=== PATIENT | male | born 1930 | race Hispanic/Latino ===

== ENCOUNTER 2020-06-25 10:07 | Observation (INO) | payer MEDICARE, OTHER ==
[~2020-06-25] VITALS: Ht 165.1 cm; Wt 72.6 kg
[~2020-06-25 10:07] MED LIST: LEVOTHYROXINE50 MCG PO; PRAVASTATIN SOD20 MG PO; TAMSULOSIN HCL0.4 MG PO
[2020-06-25] MEDS ORDERED: SODIUM CHLORIDE 0.9% 1000ML 1,000 ML IV STA (10:30)
[2020-06-25 10:45] LABS: BASOPHILS # (AUTO) 0.1 (0.0-0.1); BASOPHILS % 0.4 % (0.0-1.0); EOSINOPHILS # (AUTO) 0.1 (0.0-0.4); EOSINOPHILS % 0.5 % (0.0-6.0); HEMATOCRIT 42.7 % (38.2-49.6); HEMOGLOBIN 13.8 g/dL (14.0-18.0); LYMPHOCYTES # (AUTO) 2.6 (1.0-3.2); LYMPHOCYTES % 16.3 % (18.0-39.1); MEAN CORPUSCULAR HEMOGLOBIN 28.8 pg (28-32); MEAN CORPUSCULAR HGB CONC 32.3 g/dL (31-35); MONOCYTES # (AUTO) 1.1 (0.2-0.8); MONOCYTES % 7.1 % (4.4-11.3); NEUTROPHILS # (AUTO) 11.8 (2.1-6.9); PLATELET COUNT 358 x10e3/uL (140-360); RED CELL DISTRIBUTION WIDTH 14.3 % (11.7-14.4)
[2020-06-25 10:56] LABS: INR 0.99; PARTIAL THROMBOPLASTIN TIME 25.5 seconds (23.8-35.5); PROTHROMBIN TIME 13.6 seconds (11.9-14.5)
[2020-06-25 11:03] LABS: ALANINE AMINOTRANSFERASE 13 IU/L (0-55); ALBUMIN 3.5 g/dL (3.5-5.0); ALBUMIN/GLOBULIN RATIO 0.8 (0.8-2.0); ALKALINE PHOSPHATASE 53 IU/L (40-150); ANION GAP 14.4 mmol/L (8-16); BLOOD UREA NITROGEN 21 mg/dL (7-26); BUN/CREATININE RATIO 17 (6-25); CARBON DIOXIDE 25 mmol/L (22-29); CHLORIDE 107 mmol/L (98-107); CREATINE KINASE 48 IU/L (30-200); CREATININE, SERUM 1.27 mg/dL (0.72-1.25); EST GLOMERULAR FILTRATION RATE 54 ML/MIN (60-); GLUCOSE 114 mg/dL (74-118); MAGNESIUM 1.9 MG/DL (1.3-2.1); POTASSIUM 4.4 mmol/L (3.5-5.1); SODIUM 142 mmol/L (136-145)
[2020-06-25 11:12] LABS: CREATINE KINASE MB < 1.00 ng/mL (0-5.0)
--- NOTE | 2020-06-25 11:41 | Diagnostic Imaging Report ---
EXAMINATION: CHEST SINGLE (PORTABLE) INDICATION: Syncope COMPARISON: None FINDINGS: LINES/TUBES:EKG leads overlie the chest. LUNGS:The lungs are moderately inflated. No focal consolidation or pulmonary edema. PLEURA:No pleural effusion or pneumothorax. MEDIASTINUM:The cardiomediastinal silhouette appears normal in size and shape. Atherosclerotic calcifications of the thoracic aorta. BONES/SOFT TISSUES:No acute osseous injury. ABDOMEN:No free air under the diaphragm. IMPRESSION: No focal pneumonia or pulmonary edema. Signed by: John Serrano MD on 06/25/2020 11:38 AM
[2020-06-25] MEDS ORDERED: ONDANSETRON HCL INJ 2MG/ML 2ML 2 MG/ML VIAL IV PRN (12:00)
[2020-06-25] MEDS ORDERED: ACETAMINOPHEN 325 MG TAB PO PRN (12:00)
--- NOTE | 2020-06-25 12:03 | Emergency Department Note ---
History of Present Illnes History of Present Illness Chief Complaint: General Medicine Complaints History of Present Illness This is a 89 year old male pt came in via POV for evaluation of syncope (pt denies LOC but family says he was unresponsive/+LOC for ~1 minute), pt states that he was sitting at table drinking coffee when he fainted, denies actually falling to the floor but states that he experienced blurred vision prior to the fainting episode, denies any chest pain,dizziness or lightheadedness, pt has no complaints at this time. Historian: Patient, Family Member Arrival Mode: Car Forestry Aid Technician Required: No Onset (how long ago): minute(s) Radiation: Reports non-radiation Severity: severe Onset quality: sudden Timing of current episode: sporadic Progression: resolved Chronicity: new Context: Denies recent illness Relieving factors: none Exacerbating factors: none Associated symptoms: Reports denies other symptoms Past Medical/Family History Physician Review I have reviewed the patient's past medical and family history. Any updates have been documented here. Past Medical History Recent Fever: No Clinical Suspicion of Infectio: No New/Unexplained Change in Ment: No Past Medical History: Hypertension, Hypothyroidism Other Medical History: HIGH CHOLESTEROL PROSTATE CA Other Surgery: TURP EXPLORATORY LAP Social History Smoking Cessation: Never Smoker Counseling Performed: No Alcohol Use: None Any Illegal Drug Use: No TB Exposure/Symptoms: No Physically hurt or threatened: No Family History Family history of heart diseas: No Other Last Tetanus: Y Any Pre-Existing Lines (PICC,: No Review of Systems Review of Systems Constitutional: Reports no symptoms EENTM: Reports no symptoms Cardiovascular: Reports syncope Respiratory: Reports no symptoms Gastrointestinal: Reports no symptoms Genitourinary: Reports no symptoms Musculoskeletal: Reports no symptoms Integumentary: Reports no symptoms Neurological: Reports no symptoms Psychological: Reports no symptoms Endocrine: Reports no symptoms Hematological/Lymphatic: Reports no symptoms Physical Exam Related Data Allergies: Coded Allergies: No Known Allergies (Unverified , 11/03/15) Triage Vital Signs Vital Signs Date Time Temp Pulse Resp B/P (MAP) Pulse Ox O2 Delivery O2 Flow Rate FiO2 06/25/20 10:15 97.9 92 20 140/103 99 Room Air Vital signs reviewed: Yes Physical Exam CONSTITUTIONAL Constitutional: Present well-developed, Present well-nourished HENT HENT: Present normocephalic, Present atraumatic, Present oropharynx clear/moist, Present nose normal HENT L/R: Present left ext ear normal, Present right ext ear normal EYES Eyes: Reports PERRL, Reports conjunctivae normal NECK Neck: Present ROM normal PULMONARY Pulmonary: Present effort normal, Present breath sounds normal CARDIOVASCULAR Cardiovascular: Present regular rhythm, Present heart sounds normal, Present capillary refill normal, Present normal rate GASTROINTESTINAL Abdominal: Present soft, Present nontender, Present bowel sounds normal GENITOURINARY Genitourinary: Present exam deferred SKIN Skin: Present warm, Present dry MUSCULOSKELETAL Musculoskeletal: Present ROM normal NEUROLOGICAL Neurological: Present alert, Present oriented x 3, Present no gross motor or sensory deficits PSYCHOLOGICAL Psychological: Present mood/affect normal, Present judgement normal Results Laboratory Result Diagram: 06/25/20 1016 06/25/20 1016 Laboratory Laboratory Tests Test 06/25/20 11:47 06/25/20 10:16 White Blood Count 15.74 x10e3/uL (4.8-10.8) Red Blood Count 4.80 x10e6/uL (4.3-5.7) Hemoglobin 13.8 g/dL (14.0-18.0) Hematocrit 42.7 % (38.2-49.6) Mean Corpuscular Volume 89.0 fL (81-99) Mean Corpuscular Hemoglobin 28.8 pg (28-32) Mean Corpuscular Hemoglobin Concent 32.3 g/dL (31-35) Red Cell Distribution Width 14.3 % (11.7-14.4) Platelet Count 358 x10e3/uL (140-360) Neutrophils (%) (Auto) 75.0 % (38.7-80.0) Lymphocytes (%) (Auto) 16.3 % (18.0-39.1) Monocytes (%) (Auto) 7.1 % (4.4-11.3) Eosinophils (%) (Auto) 0.5 % (0.0-6.0) Basophils (%) (Auto) 0.4 % (0.0-1.0) Neutrophils # (Auto) 11.8 (2.1-6.9) Lymphocytes # (Auto) 2.6 (1.0-3.2) Monocytes # (Auto) 1.1 (0.2-0.8) Eosinophils # (Auto) 0.1 (0.0-0.4) Basophils # (Auto) 0.1 (0.0-0.1) Absolute Immature Granulocyte (auto 0.11 x10e3/uL (0-0.1) Prothrombin Time 13.6 seconds (11.9-14.5) Prothromb Time International Ratio 0.99 Activated Partial Thromboplast Time 25.5 seconds (23.8-35.5) Sodium Level 142 mmol/L (136-145) Potassium Level 4.4 mmol/L (3.5-5.1) Chloride Level 107 mmol/L (98-107) Carbon Dioxide Level 25 mmol/L (22-29) Anion Gap 14.4 mmol/L (8-16) Blood Urea Nitrogen 21 mg/dL (7-26) Creatinine 1.27 mg/dL (0.72-1.25) Estimat Glomerular Filtration Rate 54 ML/MIN (60-) BUN/Creatinine Ratio 17 (6-25) Glucose Level 114 mg/dL (74-118) Calcium Level 9.0 mg/dL (8.4-10.2) Magnesium Level 1.9 MG/DL (1.3-2.1) Total Bilirubin 0.4 mg/dL (0.2-1.2) Aspartate Amino Transf (AST/SGOT) 21 IU/L (5-34) Alanine Aminotransferase (ALT/SGPT) 13 IU/L (0-55) Alkaline Phosphatase 53 IU/L (40-150) Creatine Kinase 48 IU/L (30-200) Creatine Kinase MB < 1.00 ng/mL (0-5.0) Troponin I 0.001 ng/mL (0-0.300) B-Type Natriuretic Peptide 32.2 pg/mL (0-100) Total Protein 7.7 g/dL (6.5-8.1) Albumin 3.5 g/dL (3.5-5.0) Globulin 4.2 g/dL (2.3-3.5) Albumin/Globulin Ratio 0.8 (0.8-2.0) Lab results reviewed: Yes Imaging Imaging results reviewed: Yes Impressions EXAMINATION: CHEST SINGLE (PORTABLE) INDICATION: Syncope COMPARISON: None FINDINGS: LINES/TUBES:EKG leads overlie the chest. LUNGS:The lungs are moderately inflated. No focal consolidation or pulmonary edema. PLEURA:No pleural effusion or pneumothorax. MEDIASTINUM:The cardiomediastinal silhouette appears normal in size and shape. Atherosclerotic calcifications of the thoracic aorta. BONES/SOFT TISSUES:No acute osseous injury. ABDOMEN:No free air under the diaphragm. IMPRESSION: No focal pneumonia or pulmonary edema. Signed by: John Serrano MD on 06/25/2020 11:38 AM Procedures 12 Lead ECG Interpretation ECG Interpretation : ECG: ECG 1 Forestry Aid Technician: Interpreted by ED physician Date: Jun 25, 2020 Time: 10:19 Rhythm: sinus rhythm Rate: normal BPM: 97 QRS axis: normal ST segments normal: Yes T waves normal: Yes Clinical Impression: normal ECG Assessment & Plan Medical Decision Making MDM syncope - check CBC, CHEM, ECG, CARDIACS, CT BRAIN, UA - EVAL FOR DYSRHYTHMIA, STEMI/NSTEMI, DEHYDRATION, RENAL INSUFF, ELECTROLYTE ABNL. ADMIT TELE, R/O DYSRHYTHMIA/NSTEMI Reassessment Reassessment ADMIT TO DR Minda BARRAGAN Assessment & Plan Final Impression: (1) Syncope Depart Disposition: ADMITTED Last Vital Signs Date Time Temp Pulse Resp B/P (MAP) Pulse Ox O2 Delivery O2 Flow Rate FiO2 06/25/20 10:15 97.9 92 20 140/103 99 Room Air Home Meds Reported Medications Pravastatin Sodium (PRAVASTATIN SODIUM) 20 Mg Tablet, 20 MG PO DAILY 11/03/15 Levothyroxine Sodium (LEVOTHYROXINE SODIUM) 50 Mcg Tablet, 50 MCG PO DAILY, #30 TAB 11/03/15 Tamsulosin Hcl (TAMSULOSIN HCL) 0.4 Mg Cap.er.24h, 0.4 MG PO DAILY 11/03/15 Medications in the ED Sodium Chloride 1,000 ml @ 0 mls/hr Q0M STAT IV ; Start 06/25/20 at 10:30; Stop 06/25/20 at 10:34; Status DC Ondansetron HCl 4 mg Q4H PRN IV NAUSEA AND VOMITING; Start 06/25/20 at 12:00; Stop 07/25/20 at 11:59; Status UNV Acetaminophen 650 mg Q6H PRN PO Mild Pain (1-3) or Fever>100.8; Start 06/25/20 at 12:00; Stop 07/25/20 at 11:59; Status UNV MISA WADE MD Jun 25, 2020 12:03
--- NOTE | 2020-06-25 12:24 | Diagnostic Imaging Report ---
Examination: CT head without contrast Clinical Indication: ^N ^SYNCOPE ^[id number] ^1110. Technique: Transaxial noncontrast images from the skull base through the vertex were obtained. Sagittal and coronal reformatted images were done. Dose modulation, iterative reconstruction, and/or weight based adjustment of the mA/kV was utilized to reduce the radiation dose to as low as reasonably achievable. Comparison: None. Findings: Scalp: No abnormalities. Bones: Intact. No fractures. No blastic or lytic lesions. Brain sulci: Appropriate for patient's age. Ventricles: Normal in size and configuration. No hydrocephalus. . Extra-axial space: No abnormalities. Parenchyma: There are patchy areas of low-attenuation within subcortical and periventricular white matter, nonspecific, but could represent microvascular ischemic disease. 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 No masses, hemorrhage, or acute or chronic cortical based vascular insults. Suprasellar region: No abnormalities. Craniocervical junction: The foramen magnum is patent. No Chiari one malformation. Impression: 1. No acute intracranial finding. 2. 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 Signed by: Dr. Ada León M.D. on 06/25/2020 12:21 PM
[2020-06-25 12:42] LABS: CLARITY,URINE CLEAR (CLEAR); COLOR,URINE YELLOW (YELLOW)
[2020-06-25 12:43] LABS: BILIRUBIN,URINE NEGATIVE (NEGATIVE); KETONES,URINE NEGATIVE (NEGATIVE); LEUKOCYTE ESTERASE ,URINE NEGATIVE (NEGATIVE); NITRITE,URINE NEGATIVE (NEGATIVE); PROTEIN,URINE DIPSTICK NEGATIVE (NEGATIVE); URINE UROBILINOGEN 1 mg/dL (0.2 - 1)
[2020-06-25 12:55] LABS: BACTERIA,URINE MODERATE /HPF; EPITHELIAL CELLS,URINE FEW /LPF; MUCUS,URINE MODERATE (RARE); RBC,URINE 0-5 /HPF (0-5); WBC,URINE (MAN) 0-5 /HPF (0-5)
--- NOTE | 2020-06-25 14:30 | NUR ---
Received patient from ER. Patient A/O X3, even respirations on RA. Lung sounds clear. Tele #6 ST 118 with a first degree block. Left AC 20 gauge IV intact/patent. Oriented patient to room and call light. Call light in reach will continue to monitor patient.
[2020-06-25 15:05] VITALS: BP 122/81
[2020-06-25 15:06] VITALS: BP 122/81
[2020-06-25 15:10] VITALS: BP 122/81
--- NOTE | 2020-06-25 17:15 | NUR ---
Orthostatic vital signs: Lying- BP: 144/74, HR: 113, O2: 99% Sitting- BP: 122/79, HR: 122, O2: 99% Standing- BP: 127/71, HR: 120, O2: 100% Dr. Taylor made aware. New orders for NS @ 100 cc/hr x1 liter.
[2020-06-25] MEDS ORDERED: SODIUM CHLORIDE 0.9% 1000ML 1,000 ML IV ONE (18:00)
[2020-06-25 18:27] LABS: CREATINE KINASE 44 IU/L (30-200)
--- NOTE | 2020-06-25 19:00 | NUR ---
Patient visited in room (Rm 209) during nursing rounds. Patient alert and oriented x3. Ambulatory in room with standby assist prn. Plan to transfer pt room 201 for safety. at bedside. On IVF (NS at 100ml/hr). Pt denies pain or nausea. Orthostatic V/S checked Qshift. Call hubbard within reach. Will monitor pt closely.
[2020-06-25 20:00] VITALS: BP 150/82
--- NOTE | 2020-06-25 20:00 | NUR ---
Patient was transferred to 201 from 209 for pt safety.
--- NOTE | 2020-06-25 20:43 | NUR ---
H&P Chief Complaint - syncope History of Present Illness Mr Johnson is an 89 yo M with PMH significant for HLD, prostate cancer s/p TURP 2015, and hypothyroidism who presents after syncopal episode. Patient was a t the breakfast table with family members when he began to feel light-headed with blurry vision then lost consciousness. He did not fall out of his chair or hit his head. He had laid his head down on the table and was unresponsive for about 1 minute per family members. Patient then regained consciousness and did not recall the event, last memory was feeling light-headed prior to losing consciousness. He was then brought to [facility] ED. In ED, vitals were stable, EKG normal. CT head without acute abnormalities. CXR unremarkable. Labs only significant for WBC 15k, anemia w/ hgb 13.8, and JACOB with Cr 1.27. Admitted for further work-up. Home Medications Please see admission medication reconciliation Review of Systems General: No fever, chills, or fatigue HEENT: Denies visual changes, hearing loss, congestion, rhinorrhea, or bleeding Respiratory: No SOB, cough, or hemoptysis Cardiovascular: No chest pain, palpitations, KOLB, orthopnea, PND, leg edema, or claudication Gastrointestinal: No nausea, vomiting, diarrhea, constipation, or abdominal pain G/U: Denies dysuria, hematuria, incontinence, or discharge Musculoskeletal: No myalgias or arthralgias Neurological: No syncope, seizures, headaches, changes in sensation, or weakness Hematology: No bruising, bleeding, or lymphadenopathy Endocrine: No heat or cold intolerance, hair loss, or weight changes Skin: No rashes, sores, itching, bruising Psychiatric: Denies depression or elevated mood, or anxiety Past Medical History Hyperlipidemia Prostate cancer s/p TURP and exploratory laparotomy 2015 Past Surgical History TURP and exploratory laparotomy for prostate Ca 2015 Left eye cataract surgery Family History Denies family history of heart disease Mother with breast cancer Social History Does not drink, does not smoke, does not use drugs. Allergies NKDA Physical Exam Vitals: Temp: 99.1P: 110BP: 122/81RR: 20SpO2: 98% General Appearance: The patient is alert, oriented and in no acute distress. Appears euvolemic. Skin: Warm and hydrated without any rash. HEENT: Head is normocephalic, atraumatic. Nontender sinuses. Pupils are equal and reactive. The nares are patent. Oropharynx is moist and clear without lesions. Neck: Supple without lymphadenopathy. No JVD. Thyroid NV/MANAGER CLIENT SUPPORT Heart / Cardiovascular: Regular rate and rhythm. Normal S1 and S2 without S3/S4. No murmurs, rubs or gallops. Peripheral pulses symmetric +2. Respiratory / Chest: No crackles or wheezes are heard. Symmetric breath sounds. Preserved chest expansion. Abdomen: Soft, nontender, nondistended with good bowel sounds heard. No clinical organomegaly. Renal: There is no costovertebral angle tenderness. Extremities: Without cyanosis, clubbing or edema. Preserved ROM. Neurological: Gross nonfocal. Patient oriented x 3. Cranial nerves II - XII Grossly intact. DTRs +2. MS: 5/5 globally. Assessment/Plan #Syncope #Orthostatic hypotension - EKG with NSR - keep on telemetry - TTE ordered - TSH - orthostatic vital signs positive (lying down 144 SBP, dropped to 122 sitting and 127 standing) - maintenance IVF started, likely dehydrated as patient admits to poor water intake and recent self-limited bout of diarrhea - if above w/u negative, patient may benefit from event monitor outpatient; would need Cardiology follow-up #Leukocytosis - WBC 15k; patient afebrile - UA not concerning for UTI - CXR clear - could be concentration in setting of dehydration #JACOB - unknown baseline Cr, presented with Cr 1.27 - likely pre-renal, will start IVF and recheck CMP in AM - renally dose medications #HLD - continue home statin I have spent 70 minutes [id number] time with patient, reviewing clinical data, and formulating plan of treatment. Gunnar Taylor MD Internal Medicine
[2020-06-25 21:00] VITALS: BP 150/82
[2020-06-26] VITALS: BP 149/82
--- NOTE | 2020-06-26 01:00 | NUR ---
Patient had a diarrheal episode while in bed. All bed linens were changed. Patient cleaned up.
--- NOTE | 2020-06-26 02:28 | NUR ---
Attempted to call Dr. Gunnar Taylor for possible medication for diarrhea per pt request but no answer from MD. Informed pt. Patient agreed will wait on MD in AM.
[2020-06-26 04:00] VITALS: BP 132/94
[2020-06-26 05:05] LABS: BASOPHILS % 0.3 % (0.0-1.0); EOSINOPHILS # (AUTO) 0.1 (0.0-0.4); EOSINOPHILS % 0.6 % (0.0-6.0); HEMOGLOBIN 12.6 g/dL (14.0-18.0); LYMPHOCYTES # (AUTO) 1.9 (1.0-3.2); LYMPHOCYTES % 15.5 % (18.0-39.1); MEAN CORPUSCULAR HEMOGLOBIN 28.8 pg (28-32); MEAN CORPUSCULAR HGB CONC 32.3 g/dL (31-35); MONOCYTES # (AUTO) 1.2 (0.2-0.8); MONOCYTES % 9.4 % (4.4-11.3); NEUTROPHILS # (AUTO) 9.1 (2.1-6.9); NEUTROPHILS % 73.7 % (38.7-80.0); PLATELET COUNT 196 x10e3/uL (140-360); RED BLOOD COUNT 4.38 x10e6/uL (4.3-5.7); RED CELL DISTRIBUTION WIDTH 14.5 % (11.7-14.4)
[2020-06-26 05:17] LABS: CALCIUM IONIZED 1.2 mmol/L (1.09-1.30)
[2020-06-26 05:33] LABS: ALANINE AMINOTRANSFERASE 11 IU/L (0-55); ALBUMIN 2.9 g/dL (3.5-5.0); ALBUMIN/GLOBULIN RATIO 0.8 (0.8-2.0); ALKALINE PHOSPHATASE 41 IU/L (40-150); ANION GAP 13.1 mmol/L (8-16); BLOOD UREA NITROGEN 18 mg/dL (7-26); BUN/CREATININE RATIO 18 (6-25); CALCIUM 8.2 mg/dL (8.4-10.2); CARBON DIOXIDE 23 mmol/L (22-29); CHLORIDE 110 mmol/L (98-107); CHOL/HDL RATIO 2.9 (3.9-4.7); CHOLESTEROL 123 MD/DL (0-199); EST GLOMERULAR FILTRATION RATE > 60 ML/MIN (60-); GLUCOSE 98 mg/dL (74-118); HDL CHOLESTEROL 42 MG/DL (40-60); LDL CHOLESTEROL 67 MG/DL (60-130); POTASSIUM 5.1 mmol/L (3.5-5.1); SODIUM 141 mmol/L (136-145); TRIGLYCERIDES 69 MG/DL (0-149)
[2020-06-26 06:04] LABS: FREE T4 (FREE THYROXINE) 1.09 ng/dL (0.8-1.8); THYROID STIMULATING HORMONE 1.382 uIU/mL (0.350-4.940)
[2020-06-26 06:07] LABS: MAGNESIUM 1.8 MG/DL (1.3-2.1); PHOSPHORUS 2.2 MG/DL (2.3-4.7)
[2020-06-26 07:25] VITALS: BP 165/85
[2020-06-26 08:12] VITALS: BP 165/85
[2020-06-26 08:27] LABS: CREATINE KINASE MB 1.6 ng/mL (0-5.0)
[2020-06-26] MEDS ORDERED: PRAVASTATIN 20 MG TAB PO SCH (09:00)
[2020-06-26 11:34] VITALS: BP 148/90
--- NOTE | 2020-06-26 11:35 | NUR ---
spoke with Dr. Gunnar Taylor regarding Echo order. no new orders received. Dr. Taylor says he is on his way to see patient.
[2020-06-26] MEDS ORDERED: ONDANSETRON HCL 4 MG ORAL DISINTEGRATING TAB SL PRN (12:15)
--- NOTE | 2020-07-01 20:59 | NUR ---
Discharge Summary Patient: Curry Johnson Admission date: 06/25/2020 Discharge date: 06/26/2020 Attending physician: Gunnar Taylor MD Consultation: none Admitting Diagnosis: syncope, orthostatic hypotension, dehydration, leukocytosis, JACOB, Hyperlipidemia, history of prostate cancer, hypothyroidism Discharge Diagnosis: syncope, orthostatic hypotension, dehydration, leukocytosis, JACOB, Hyperlipidemia, history of prostate cancer, hypothyroidism Procedures: None Hospital Course: Mr Johnson is an 89 yo M with PMH significant for HLD, prostate cancer s/p TURP 2014, and hypothyroidism who presents after syncopal episode. Patient was a t the breakfast table with family members when he began to feel light-headed with blurry vision then lost consciousness. He did not fall out of his chair or hit his head. He had laid his head down on the table and was unresponsive for about 1 minute per family members. Patient then regained consciousness and did not recall the event, last memory was feeling light-headed prior to losing consciousness. He was then brought to [facility] ED. In ED, vitals were stable, EKG normal. CT head without acute abnormalities. CXR unremarkable. Labs only significant for WBC 15k, anemia w/ hgb 13.8, and JACOB with Cr 1.27. Admitted for further work-up. Telemetry without arrhythmias noted in 24hours. Troponins negative. TTE with normal EF 60-65% and mild tricuspid regurgitation but no obvious cause of syncope. Positive orthostatic vitals, patient was given IV fluids with improveme nt. He also had JACOB likely due to dehydration which improved after fluids. Patient had diarrhea for a few days prior to arrival to hospital and agrees he was not drinking enough fluids, so likely he was dehydrated. However this does fully rule out other causes of stroke. Patient advised to follow up with PCP and discuss seeing a children's choir director for outpatient workup including possible Holter monitor or event monitor. Physical Exam: Vitals: Temp: 99.1P: 110BP: 122/81RR: 20SpO2: 98% General Appearance: The patient is alert, oriented and in no acute distress. Appears euvolemic. Skin: Warm and hydrated without any rash. HEENT: Head is normocephalic, atraumatic. Nontender sinuses. Pupils are equal and reactive. The nares are patent. Oropharynx is moist and clear without lesions. Neck: Supple without lymphadenopathy. No JVD. Thyroid NV/AD TERMINAL MAKEUP OPERATOR Heart / Cardiovascular: Regular rate and rhythm. Normal S1 and S2 without S3/S4. No murmurs, rubs or gallops. Peripheral pulses symmetric +2. Respiratory / Chest: No crackles or wheezes are heard. Symmetric breath sounds. Preserved chest expansion. Abdomen: Soft, nontender, nondistended with good bowel sounds heard. No clinical organomegaly. Renal: There is no costovertebral angle tenderness. Extremities: Without cyanosis, clubbing or edema. Preserved ROM. Neurological: Gross nonfocal. Patient oriented x 3. Cranial nerves II - XII Grossly intact. DTRs +2. MS: 5/5 globally. Discharge medications: See medication reconciliation Discharge plan: Condition on discharge: good Activity: as tolerated Diet: discharge diet Follow-up: follow up with your PCP within 1 week Time spent on discharge: 45 minutes
== END 2020-06-26 13:24 | disposition home or self-care (01) ==
LOC: ER 10:37 → ERHOLD 12:16 → MED/SURG2 14:41
PROVIDERS: ADMIT Internal Medicine; ATTEND Internal Medicine
DX: I95.1 Orthostatic hypotension (principal); N17.9 Acute kidney failure, unspecified; Z08 Encounter for follow-up examination after completed treatment for malignant neoplasm; Z85.46 Personal history of malignant neoplasm of prostate; E86.0 Dehydration; E78.5 Hyperlipidemia, unspecified; E03.9 Hypothyroidism, unspecified
CPT/HCPCS: 36415 ×2; 70450; 71045; 80053 ×2; 80061; 81001; 82550 ×2; 82553 ×2; 83735 ×2; 83880; 84100; 84439; 84443; 84484 ×2; 85025 ×2; 85610; 85730; 87086; 93005; 93306; 99284; G0378 ×2; J7030; U0002